=== PATIENT | female | born 1985 | race Caucasian/White ===

== ENCOUNTER 2016-09-22 05:36 | Outpatient (CLI) | payer MEDICAID ==
[~2016-09-22] VITALS: Ht 172.7 cm; Wt 95.7 kg
[~2016-09-22 05:36] MED LIST: HYDROCODONE-APA1 TAB PO; IBUPROFEN600 MG PO
[2016-09-22 07:01] VITALS: BP 127/67; Ht 172.7 cm; Wt 95.7 kg
[2016-09-22 07:19] LABS: HEMATOCRIT 29.3 % (36.0-48.0); HEMOGLOBIN 9.5 g/dL (12-16); MCH 30.8 pg (26.0-34.0); MCHC 32.4 g/dL (31.0-37.0); MCV 95.1 fL (80.0-100.0); MEAN PLATELET VOLUME 11.1 fL (7.4-10.4); RBC 3.08 10x6/uL (4.00-5.40); RDW 13.9 % (11.5-14.5); WBC 10.1 10x3/uL (4.8-10.8)
[2016-09-22 07:46] LABS: UDS - AMPHET NEGATIVE QUAL (NEGATIVE); UDS - BARB NEGATIVE QUAL (NEGATIVE); UDS - BENZO NEGATIVE QUAL (NEGATIVE); UDS - COCAINE NEGATIVE QUAL (NEGATIVE); UDS - METH NEGATIVE QUAL (NEGATIVE); UDS - OPIATE NEGATIVE QUAL (NEGATIVE); UDS - PCP NEGATIVE QUAL (NEGATIVE); UDS - THC NEGATIVE QUAL (NEGATIVE)
[2016-09-22 07:59] LABS: APPEARANCE SLT CLOUDY (CLEAR); BACTERIA MODERATE /hpf (NONE SEEN); BILIRUBIN NEGATIVE (NEGATIVE); COLOR YELLOW (YELLOW); GLUCOSE NEGATIVE (NEGATIVE); KETONE NEGATIVE (NEGATIVE); LEUKOCYTE ESTERASE 1+ (NEGATIVE); MUCUS <1+ /lpf (NONE SEEN); NITRITE NEGATIVE (NEGATIVE); PROTEIN NEGATIVE (NEGATIVE); RED CELLS - URINE OCC /hpf (0-5); WHITE CELLS - URINE 0-5 /hpf (0-5)
[2016-09-23 07:25] LABS: RAPID PLASMA REAGIN Non Reactive (Non Reactive)
== END 2016-09-22 14:00 | disposition home or self-care (01) ==
LOC: D.LD 05:36 → UNDOADMIN 05:36 → D.OPS 05:36 → D.LD 14:00 → D.OPS 14:00 → EDSTATUS 09-23 13:36
PROVIDERS: Obstetrics & Gynecology
DX: O99.324 Drug use complicating childbirth (principal); O99.334 Smoking (tobacco) complicating childbirth; F12.90 Cannabis use, unspecified, uncomplicated; O61.0 Failed medical induction of labor; Z3A.39 39 weeks gestation of pregnancy

== ENCOUNTER 2016-09-25 05:07 | Inpatient (IN) | payer MEDICAID ==
[~2016-09-25] VITALS: Ht 172.7 cm; Wt 95.7 kg
[2016-09-25 05:46] VITALS: BP 126/65; Ht 172.7 cm; Wt 95.7 kg
[2016-09-25 06:26] LABS: HEMATOCRIT 33.6 % (36.0-48.0); HEMOGLOBIN 10.9 g/dL (12-16); MCH 30.6 pg (26.0-34.0); MCHC 32.4 g/dL (31.0-37.0); MCV 94.4 fL (80.0-100.0); MEAN PLATELET VOLUME 11.2 fL (7.4-10.4); RBC 3.56 10x6/uL (4.00-5.40); WBC 7.7 10x3/uL (4.8-10.8)
[2016-09-25 06:36] LABS: UDS - AMPHET NEGATIVE QUAL (NEGATIVE); UDS - BARB NEGATIVE QUAL (NEGATIVE); UDS - BENZO NEGATIVE QUAL (NEGATIVE); UDS - COCAINE NEGATIVE QUAL (NEGATIVE); UDS - METH NEGATIVE QUAL (NEGATIVE); UDS - OPIATE NEGATIVE QUAL (NEGATIVE); UDS - PCP NEGATIVE QUAL (NEGATIVE); UDS - THC NEGATIVE QUAL (NEGATIVE)
[2016-09-26 06:14] LABS: RAPID PLASMA REAGIN Non Reactive (Non Reactive)
== END 2016-09-25 14:30 | disposition home or self-care (01) | DRG 775 ==
LOC: D.LD 05:07
PROVIDERS: ADMIT Obstetrics & Gynecology
PROC: 3E033VJ Introduction of Other Hormone into Peripheral Vein, Percutaneous Approach (ICD-10-PCS; principal; 2016-09-25)
DX: O99.324 Drug use complicating childbirth (principal); F12.90 Cannabis use, unspecified, uncomplicated; O99.334 Smoking (tobacco) complicating childbirth; Z3A.39 39 weeks gestation of pregnancy; O61.0 Failed medical induction of labor

== ENCOUNTER → 2016-09-29 09:50 | Outpatient (CLI) | payer MEDICAID ==
[2016-09-25 05:46] VITALS: BMI 32.1
== END | disposition home or self-care (01) ==
LOC: D.LDO 09:50
DX: O48.0 Post-term pregnancy (principal); Z3A.40 40 weeks gestation of pregnancy

== ENCOUNTER 2016-10-05 05:05 | Inpatient (IN) | payer MEDICAID ==
[~2016-10-05] VITALS: Ht 172.7 cm; Wt 95.9 kg
[2016-10-05 05:44] VITALS: BP 135/88; Ht 172.7 cm; Wt 95.9 kg
[2016-10-05 06:32] LABS: HEMATOCRIT 31.6 % (36.0-48.0); HEMOGLOBIN 10.1 g/dL (12-16); MCH 30.1 pg (26.0-34.0); MCV 94.3 fL (80.0-100.0); MEAN PLATELET VOLUME 11.4 fL (7.4-10.4); RBC 3.35 10x6/uL (4.00-5.40); WBC 10.6 10x3/uL (4.8-10.8)
[2016-10-05 06:36] LABS: APPEARANCE CLOUDY (CLEAR); BILIRUBIN NEGATIVE (NEGATIVE); COLOR YELLOW (YELLOW); GLUCOSE NEGATIVE (NEGATIVE); KETONE NEGATIVE (NEGATIVE); LEUKOCYTE ESTERASE 1+ (NEGATIVE); NITRITE NEGATIVE (NEGATIVE); PROTEIN NEGATIVE (NEGATIVE); SPECIFIC GRAVITY 1.015 (1.005-1.020); UROBILINOGEN NORMAL (NORMAL)
[2016-10-05 06:39] LABS: BACTERIA FEW /hpf (NONE SEEN); MUCUS <1+ /lpf (NONE SEEN); RED CELLS - URINE OCC /hpf (0-5)
[2016-10-05 06:48] LABS: UDS - AMPHET NEGATIVE QUAL (NEGATIVE); UDS - BARB NEGATIVE QUAL (NEGATIVE); UDS - BENZO NEGATIVE QUAL (NEGATIVE); UDS - COCAINE NEGATIVE QUAL (NEGATIVE); UDS - METH NEGATIVE QUAL (NEGATIVE); UDS - OPIATE NEGATIVE QUAL (NEGATIVE); UDS - PCP NEGATIVE QUAL (NEGATIVE); UDS - THC NEGATIVE QUAL (NEGATIVE)
--- NOTE | 2016-10-05 19:16 | NUR ---
BEDSIDE REPORT REC'D FROM Nohemi NAPLOES RN. PT CURRENTLY VISITING WITH VISITORS. MEGHANN RN IN ROOM PROVIDING TEACHING ON . PT REQUESTS THAT ASSESSMENT BE DONE ONCE SHE FINISHES FEEDING INFANT. BED IN LOW POSITION WITH UPPER SIDE RAILS RAISED X2. CL AND PHONE WITHIN REACH. INSTRUCTED TO USE CL WHEN READY FOR ASSESSMENT TO BE COMPLETED. PT DENIES NEEDS, NO S/S OF DISTRESS NOTED.
[2016-10-05 19:48] VITALS: BP 126/86
--- NOTE | 2016-10-05 19:48 | NUR ---
PT CALLS VIA CL. RN TO ROOM. S/O HOLDING AT THIS TIME. SHIFT ASSESSMENT COMPLETED. VSS. FUNDUS FIRM, U2 WITH MODERATE AMT RUBRA LOCHIA NOTED TO PERIPAD, NO CLOTS PRESENT. BOWEL SOUNDS ACTIVE X4 QUADRANTS, PT STATES ZARA SHE IS PASSING FLATUS. VOIDING WITHOUT DIFFICULTY. MILD BILATERAL LABIAL SWELLING NOTED, ICE PACK GIVEN WITH INSTRUCTIONS ON USE, VERBALIZED UNDERSTANDING STATING THAT SHE WILL PLACE IT WHEN INFANT GOES BACK TO N. PT REPORTS BURNING AND STINGING WITH VOIDING, REQUEST TUX AND EPIFOAM STATING THAT SHE USED THEM WITH HER PREVIOUS BIRTHS AND THEY WORKED REALLY WELL. ORDER REC'D FOR TUX, EPIFOAM, AND DERMAPLAST FROM DR. OLEA. ICE WATER GIVEN, DENIES ADDITIONAL NEEDS AT THIS TIME. BED REMAINS IN LOW POSITION WITH UPPER SIDE RAILS RAISED X2. CL AND PHONE WITHIN REACH. PAIN 5/10, ABD CRAMPING AND BURNING/STINGING TO PERINUM. WILL CONT TO MONITOR AND ASSIST PRN.
--- NOTE | 2016-10-05 19:57 | NUR ---
TUXS, EPIFOAM, AND DERMAPLAST GIVEN. INSTRUCTED ON USE WITH VOIDING. INSTRUCTED TO CONTINUE USING BETADINE WASHES WITH EACH VOID, THEN USE TUXS, EPIFOAM, AND DERMAPLAST. PT STATES THAT SHE REMEMBERS HOW TO USE ALL PRODUCTS FROM PREVIOUS BIRTHS. INSTRUCTED TO CALL RN IF ASSISTANCE IS NEEDED WITH USE OF PRODUCTS. PT REQUESTS TO MOVE TO ANOTHER ROOM AT THIS TIME, STATING THAT ROOM IS REALLY HOT AND EVEN WITH THERMOSTAT ADJUSTED, ROOM IS NOT COOLING DOWN. FAN CURRENTLY BLOWING WITH NO AIR COMING OUT. SPOKE WITH Jillian SAUNDERS, FIELD HAND, PT WILL BE MOVED TO ROOM 1257. PT NOTIFIED, VERBALIZED APPRECIATION. STATES THAT SHE HAS ONE MORE VISITOR COMING AND REQUEST TO MOVE AFTER THIS VISITOR LEAVES, WILL NOTIFY RN WHEN READY TO MOVE ROOMS.
--- NOTE | 2016-10-05 21:47 | NUR ---
ROUNDS MADE. PAIN 7/10 INTERMITTENT ABD CRAMPING AND BURNING/STINGING TO PERINUM. REQUESTS NORCO. STATES THAT SHE HAS USED TUX AND EPIFOAM AND IT HELPED WITH PERINEAL DISCOMFORT. BED IN LOW POSITION WITH UPPER SIDE RAILS RAISED X2. CL AND PHONE WITHIN REACH. DENIES ADDITIONAL NEEDS. S/O AT BEDSIDE AND SUPPORTIVE OF PT. WILL CONT TO MONITOR AND ASSIST PRN.
--- NOTE | 2016-10-05 22:32 | NUR ---
PAIN REASSESSMENT COMPLETE. PAIN NOW 06/05. PT MOVED TO ROOM 1257. ORIENTED TO ROOM, BATHROOM, CL USE, AND TV. VERBALIZED UNDERSTANDING. BED IN LOW POSITION WITH UPPER SIDE RAILS RAISED X2. CL AND PHONE WITHIN REACH. WILL CONT TO MONITOR AND ASSIST PRN.
--- NOTE | 2016-10-06 00:12 | NUR ---
PT TO NURSES STATION. STATES THAT PAIN IS 6/10, REQUESTS MOTRIN, GIVEN PER REQUEST. S/O REMAINS AT BEDSIDE AND SUPPORTIVE OF PT. BED IN LOW POSITION WITH UPPER SIDE RAILS RAISED X2. CL AND PHONE WITHIN REACH. ICE WATER GIVEN. WILL CONT TO MONITOR AND ASSIST PRN.
--- NOTE | 2016-10-06 00:57 | NUR ---
PAIN REASSESSMENT COMPLETED. PAIN 08/03. PT REQUESTS NORCO AT NEXT AVAILABLE TIME, STATING THAT MOTRIN HASN'T HELPED MUCH AND PAIN IS STARTING TO RETURN. S/O REMAINS AT BEDSIDE. CL AND PHONE WITHIN PT REACH. BED IN LOW POSITION WITH UPPER SIDE RAILS RAISED X2. WILL CONT TO MONITOR AND ASSIST PRN.
--- NOTE | 2016-10-06 01:24 | NUR ---
PAIN 6/10 TO PERINUM AND ABD CRAMPING. NORCO GIVEN PER REQUEST. DENIES ADDITIONAL NEEDS AT THIS TIME. PT STATES THAT SHE IS GOING TO TRY TO REST AT THIS TIME.
--- NOTE | 2016-10-06 02:09 | NUR ---
PAIN REASSESSMENT COMPLETED. PAIN 07/03. PT CURRENTLY VISITING WITH S/O, LAUGHING AND WATCHING TV. DENIES NEEDS AT THIS TIME. BED IN LOW POSITION WITH UPPER SIDE RAILS RAISED X2. CL AND PHONE WITHIN REACH. WILL CONT TO MONITOR AND ASSIST PRN.
--- NOTE | 2016-10-06 04:05 | NUR ---
ROUNDS MADE. PT RESTING WITH EYES CLOSED. RESPIRATIONS REGULAR, NO S/S OF DISTRESS NOTED. S/O SLEEPING ON COUCH AT BEDSIDE. BED IN LOW POSITION WITH UPPER SIDE RAILS RAISED X2. CL AND PHONE WITHIN PT REACH. WILL CONT TO MONITOR AND ASSIST PRN.
--- NOTE | 2016-10-06 05:45 | NUR ---
PT CALLS VIA CL, REQUEST NORCO AND MOTRIN. STATES THAT PAIN IS 7/10 WITH BURNING AND STINGING TO PERINUM AND ABD CRAMPING. GIVEN PER ORDER AND REQUESTS. PT STATES THAT SHE HAS BEEN USING [employer] PRODUCTS AND THEY ARE HELPING SHE JUST "FEELS SORE." PIV REMOVED PER PT REQUEST, STATES THAT IV IS "IRRATATING ME AND GETTING IN MY WAY WHEN I TRY TO HOLD THE BABY." S/O SLEEPING ON COUCH AT BEDSIDE. BED IN LOW POSITION WITH UPPER SIDE RAILS RAISED X2. CL AND PHONE WITHIN REACH. DENIES ADDITIONAL NEEDS. WILL CONT TO MONITOR AND ASSIST PRN.
[2016-10-06 06:14] LABS: RAPID PLASMA REAGIN Non Reactive (Non Reactive)
--- NOTE | 2016-10-06 06:25 | NUR ---
ROUNDS MADE FOR PAIN REASSESSMENT. PT RESTING WITH EYES CLOSED. RESPIRATIONS REGULAR, NO S/S OF DISTRESS NOTED. BED REMAINS IN LOW POSITION WITH UPPER SIDE RAILS RAISED X2. CL AND PHONE WITHIN REACH. WILL CONTINUE TO MONITOR AND ASSIST PRN.
[2016-10-06 07:46] VITALS: BP 142/76
--- NOTE | 2016-10-06 07:59 | NUR ---
T-DAP INFO GIVEN TO PT.
--- NOTE | 2016-10-06 08:20 | NUR ---
DR AGRAWAL IN UNIT TO SEE PT.
[2016-10-06 09:13] LABS: BASOPHILS 0.1 % (0-2); EOSINOPHILS 1.9 % (0-7); HEMATOCRIT 26.5 % (36.0-48.0); HEMOGLOBIN 8.8 g/dL (12-16); LYMPHOCYTES 18.8 % (15-50); MCH 31.2 pg (26.0-34.0); MCHC 33.2 g/dL (31.0-37.0); MEAN PLATELET VOLUME 10.7 fL (7.4-10.4); NEUTROPHILS 71.2 % (40-80); PLATELET COUNT 182 10x3/uL (130-400); RBC 2.82 10x6/uL (4.00-5.40); RDW 13.9 % (11.5-14.5)
--- NOTE | 2016-10-06 10:45 | NUR ---
PT CARE TO Yu GARVIN RN. REPORT GIVEN.
--- NOTE | 2016-10-06 10:57 | NUR ---
pt with snoring on bed. sig other states " she is finally getting some rest". no distress noted.
--- NOTE | 2016-10-06 12:30 | NUR ---
PT UP IN [place]. WALKING. NO COMPLAINTS VOICED.
--- NOTE | 2016-10-06 15:45 | NUR ---
D/C INSTRUCTIONS GIVEN AND EXPLAINED TO PT. QUESTIONS ANSWERED. RX GIVEN X2 WITH INSTRUCTIONS. PT AWARE SHE WILL TAKING SAME MEDS THAT SHE HAS BEEN GIVEN IN HOSP.
== END 2016-10-06 15:45 | disposition home or self-care (01) | DRG 775 ==
LOC: D.LD 05:05
PROVIDERS: ADMIT Obstetrics & Gynecology
PROC: 10D07Z6 Extraction of Products of Conception, Vacuum, Via Natural or Artificial Opening (ICD-10-PCS; principal; 2016-10-05)
PROC: 10907ZC Drainage of Amniotic Fluid, Therapeutic from Products of Conception, Via Natural or Artificial Opening (ICD-10-PCS; 2016-10-05)
DX: O99.334 Smoking (tobacco) complicating childbirth (principal); Z3A.41 41 weeks gestation of pregnancy; Z37.0 Single live birth; O99.324 Drug use complicating childbirth; F12.90 Cannabis use, unspecified, uncomplicated; O99.344 Other mental disorders complicating childbirth; F41.8 Other specified anxiety disorders; O28.2 Abnormal cytological finding on antenatal screening of mother; O66.0 Obstructed labor due to shoulder dystocia; O76 Abnormality in fetal heart rate and rhythm complicating labor and delivery

== ENCOUNTER 2016-11-19 06:00 | Day surgery (SDC) | payer MEDICAID ==
[2016-11-17 14:04] LABS: BASOPHILS 0.2 % (0-2); EOSINOPHILS 5.7 % (0-7); HEMATOCRIT 38.4 % (36.0-48.0); HEMOGLOBIN 12.4 g/dL (12-16); IMMATURE GRANULOCYTES 0.2 % (0-5); LYMPHOCYTES 29.2 % (15-50); MCHC 32.3 g/dL (31.0-37.0); MCV 89.9 fL (80.0-100.0); MEAN PLATELET VOLUME 10.4 fL (7.4-10.4); MONOCYTES 6.2 % (2-11); NEUTROPHILS 58.5 % (40-80); PLATELET COUNT 200 10x3/uL (130-400); RBC 4.27 10x6/uL (4.00-5.40); RDW 13.4 % (11.5-14.5); WBC 5.3 10x3/uL (4.8-10.8)
[2016-11-17 14:15] LABS: CALC OSMOLALITY 284 mosm/kg (275-300); CALCIUM 8.5 mg/dL (8.5-10.1); CARBON DIOXIDE 28.4 mmol/L (21.0-32.0); CHLORIDE - SERUM 107 mmol/L (98-107); CREATININE - SERUM 0.9 mg/dL (0.6-1.3); GLUCOSE 87 mg/dL (74-106); POTASSIUM - SERUM 3.7 mmol/L (3.5-5.1); SODIUM 144 mmol/L (136-145); UREA NITROGEN 9 mg/dL (7-18); eGFR NON AFRICAN AMERICAN 78 mL/min (90-120)
[~2016-11-19] VITALS: Ht 172.7 cm; Wt 78.9 kg
[~2016-11-19 06:00] MED LIST changes: +BUPROPION XL150 MG PO; +BUSPAR 15 MG TA15 MG PO; +XANAX2 MG PO; +ZOLOFT50 MG PO
[2016-11-19 06:58] LABS: HCG URINE NEGATIVE (NEGATIVE)
[2016-11-19 07:04] VITALS: BP 123/79; Ht 172.7 cm; Wt 78.9 kg
--- NOTE | 2016-11-23 17:48 | OP ---
PATIENT NAME: YUSEF GALE MEDICAL RECORD: [id number] :89 LOCATION:[facility] ADMISSION DATE: SURGEON: ZAYRA ROSSI MD DATE OF OPERATION: 11/19/2016 PREOPERATIVE DIAGNOSIS: Multiparity, patient desires permanent sterility. POSTOPERATIVE DIAGNOSIS: Multiparity, patient desires permanent sterility. PROCEDURE: Laparoscopic tubal ligation via bipolar cautery. SURGEON: Zayra Rossi MD ESTIMATED BLOOD LOSS: Minimal. INTRAVENOUS FLUIDS: Per anesthesia record. SPECIMENS: None. COMPLICATIONS: None apparent. FINDINGS: 1. Grossly normal appearing fallopian tubes bilaterally. 2. Grossly normal appearing ovaries. A 1.5 cm follicular cyst noted on left ovary. PROCEDURE IN DETAIL: The patient was taken to the operating room where general anesthesia was achieved without difficulty. The patient was then prepped and draped in normal sterile fashion in the dorsal lithotomy position in the [facility]. At this point, the bladder was drained of approximately 100 cc of clear yellow urine. A sponge stick was placed into the vagina for uterine elevation. Attention was then turned to the umbilicus where a 5-mm incision was made in the skin and the 5-mm bladeless trocar was used to enter the intraperitoneal space under direct visualization of the laparoscope. The patient was then insufflated and a second 5-mm port was placed approximately 5 cm above the pubic symphysis in the midline under direct visualization of the laparoscope. At this point, the tubes were identified and the bipolar cautery was used to completely desiccate a contiguous 5 cm section in the middle portion of each tube. Good hemostasis was noted. A survey of the abdomen and pelvis was performed and no pathology was noted. The scope was then removed. The patient was desufflated. The ports were removed and the skin was repaired with 3-0 Vicryl in an interrupted fashion. TRANSINT:[id number] Voice Confirmation ID: [id number] DOCUMENT ID: [id number] ZAYRA ROSSI MD at 1748 CC: [id number] DICTATION DATE: 11/19/16 0927 DOOR CAPTAIN: 11/19/16 1126 [facility] 11/19/16 [id number] [place] [address]
== END 2016-11-19 11:30 | disposition home or self-care (01) ==
LOC: D.OPS 06:00 → D.PAN 09:00 → D.OPS 11:30
PROVIDERS: Obstetrics & Gynecology
DX: Z30.2 Encounter for sterilization (principal); N83.02 Follicular cyst of left ovary; F32.9 Major depressive disorder, single episode, unspecified; F41.9 Anxiety disorder, unspecified; F17.200 Nicotine dependence, unspecified, uncomplicated; F12.90 Cannabis use, unspecified, uncomplicated; Z01.812 Encounter for preprocedural laboratory examination

== ENCOUNTER 2016-12-29 23:11 | Emergency (ER) | payer MEDICAID ==
[2016-11-19 07:04] VITALS: BMI 26.5
== END 2016-12-30 00:12 | disposition home or self-care (01) ==
LOC: D.ER 23:11
DX: L03.112 Cellulitis of left axilla (principal); F17.200 Nicotine dependence, unspecified, uncomplicated

== ENCOUNTER 2017-01-02 17:03 | Emergency (ER) | payer MEDICAID ==
[2016-11-19 07:04] VITALS: BMI 26.5
== END 2017-01-02 20:25 | disposition home or self-care (01) ==
LOC: D.ER 17:03
DX: L02.412 Cutaneous abscess of left axilla (principal)

== ENCOUNTER 2017-03-10 10:04 | Emergency (ER) | payer MEDICAID ==
[2016-11-19 07:04] VITALS: BMI 26.5
== END 2017-03-10 11:25 | disposition home or self-care (01) ==
LOC: D.ER 10:04
DX: J06.9 Acute upper respiratory infection, unspecified (principal); F17.200 Nicotine dependence, unspecified, uncomplicated

== ENCOUNTER 2017-09-16 12:52 | Emergency (ER) | payer MEDICAID ==
[2016-11-19 07:04] VITALS: BMI 26.5
[2017-09-16 16:00] LABS: BASOPHILS 0.3 % (0-2); EOSINOPHILS 5.1 % (0-7); HEMATOCRIT 37.8 % (36.0-48.0); HEMOGLOBIN 12.6 g/dL (12-16); IMMATURE GRANULOCYTES 0.2 % (0-5); LYMPHOCYTES 40.6 % (15-50); MCH 31.3 pg (26.0-34.0); MCHC 33.3 g/dL (31.0-37.0); MCV 93.8 fL (80.0-100.0); MEAN PLATELET VOLUME 10.4 fL (7.4-10.4); MONOCYTES 6.4 % (2-11); NEUTROPHILS 47.4 % (40-80); PLATELET COUNT 162 10x3/uL (130-400); RBC 4.03 10x6/uL (4.00-5.40); RDW 13.1 % (11.5-14.5); WBC 6.4 10x3/uL (4.8-10.8)
== END 2017-09-16 16:50 | disposition home or self-care (01) ==
LOC: D.ER 12:52
PROVIDERS: Physician Assistant
DX: S40.021A Contusion of right upper arm, initial encounter (principal); X58.XXXA Exposure to other specified factors, initial encounter; Y93.89 Activity, other specified; Y92.89 Other specified places as the place of occurrence of the external cause

== ENCOUNTER 2017-11-16 04:08 | Emergency (ER) | payer MEDICAID ==
[~2017-11-16] VITALS: Ht 172.7 cm; Wt 59.1 kg
[2017-11-16 04:13] VITALS: Ht 172.7 cm; Wt 59.1 kg
[2017-11-16] MEDS ORDERED: NORCO 7.5/325 T1 TA1 PO (10:08)
[2017-11-16 10:46] VITALS: BP 147/94
== END 2017-11-16 10:24 | disposition home or self-care (01) ==
LOC: D.ER 04:08
DX: M54.2 Cervicalgia (principal); V43.52XA Car driver injured in collision with other type car in traffic accident, initial encounter; Y93.89 Activity, other specified; Y92.410 Unspecified street and highway as the place of occurrence of the external cause; F17.200 Nicotine dependence, unspecified, uncomplicated